=== PATIENT | male | born 1995 | race Caucasian/White ===

== ENCOUNTER 2017-07-18 17:18 | Emergency (ER) | payer MEDICAID ==
[~2017-07-18] VITALS: Ht 188 cm; Wt 74.0 kg
[2017-07-18] MEDS ORDERED: KETOROLAC 30MG/ML VIAL IV ONE (17:45)
[2017-07-18] MEDS ORDERED: METOCLOPRAMIDE HCL 10MG/2ML VIAL IV ONE (17:45)
[2017-07-18] MEDS ORDERED: DIPHENHYDRAMINE 50MG/ML VIAL IV ONE (17:45)
[2017-07-18] MEDS ORDERED: SODIUM CHLORIDE 0.9% 1,000 ML IV ONE (17:45)
[2017-07-18] MEDS ORDERED: ONDANSETRON HCL 4MG/2ML VIAL IV STA (19:32)
[2017-07-18] MEDS ORDERED: MORPHINE SULFATE 4 MG/ML CPJ (NOT FOR IM USE) IV STA (19:32)
[2017-07-18 22:09] VITALS: BP 110/60
== END 2017-07-18 22:09 | disposition home or self-care (01) ==
LOC: ER 17:56
DX: G43.909 Migraine, unspecified, not intractable, without status migrainosus (principal); F12.90 Cannabis use, unspecified, uncomplicated; F17.290 Nicotine dependence, other tobacco product, uncomplicated
CPT/HCPCS: 96361; 96374; 96375; 99284; 99406; J1200; J1885; J2270; J2405; J2765; Z7610; J7030